=== PATIENT | male | born 1970 | race Caucasian/White ===

== ENCOUNTER 2021-11-13 13:55 | Emergency (ER) | payer MEDICAID ==
[~2021-11-13] VITALS: Ht 177.8 cm; Wt 75.0 kg
[~2021-11-13 13:55] MED LIST: FOLI1TAB27 PO; GABA-532 PO; MULT-25 PO; PANT40TA54 PO; THI100T PO
[2021-11-13 14:14] VITALS: BP 117/78
[2021-11-13] MEDS ORDERED: ONDA4TAB12 PO (14:16)
[2021-11-13] MEDS ORDERED: LORA-269 PO (14:16)
[2021-11-13] MEDS ORDERED: GABA100C PO (14:16)
== END 2021-11-13 14:25 | disposition home or self-care (01) ==
LOC: ER 13:56
DX: F10.129 Alcohol abuse with intoxication, unspecified (principal); F10.10 Alcohol abuse, uncomplicated; R00.0 Tachycardia, unspecified; R47.81 Slurred speech; F41.9 Anxiety disorder, unspecified; Z72.89 Other problems related to lifestyle; Z79.899 Other long term (current) drug therapy; Y90.9 Presence of alcohol in blood, level not specified
CPT/HCPCS: 99283

== ENCOUNTER 2022-10-01 17:23 | Emergency (ER) | payer MEDICAID ==
[~2022-10-01] VITALS: Ht 177.8 cm; Wt 81.8 kg
[~2022-10-01 17:23] MED LIST changes: +GABA100C PO; +LORA-269 PO; +ONDA4TAB12 PO
[2022-10-01] MEDS ORDERED: normal saline 1000ML IV soln IV ONE (17:45)
[2022-10-01 18:30] LABS: BASOPHILS % (AUTO) 0.3 % (0-1); EOSINOPHILS % (AUTO) 0.6 % (0-6); HEMATOCRIT 48.5 % (42.0-52.0); HEMOGLOBIN 16.9 g/dl (14.0-17.9); LYMPHOCYTES # (AUTO) 1.8 X10'3 (1.1-4.8); LYMPHOCYTES % (AUTO) 21.2 % (21-51); MEAN CORPUSCULAR HEMOGLOBIN 33.9 PG (27.0-31.0); MEAN CORPUSCULAR HGB CONC 34.9 g/dL (33.0-36.5); MEAN CORPUSCULAR VOLUME 97.1 FL (78-98); MEAN PLATELET VOLUME 8.8 FL (7.4-10.4); MONOCYTES # (AUTO) 0.7 X10'3 (0-0.9); MONOCYTES % (AUTO) 7.8 % (2-12); NEUTROPHILS # (AUTO) 6.1 X10'3 (1.8-7.7); NEUTROPHILS % (AUTO) 70.1 % (42-75); PLATELET COUNT 147 X10'3 (140-440); RED BLOOD COUNT 4.99 X10'6 (4.70-6.10); RED CELL DISTRIBUTION WIDTH 12.6 % (11.5-14.5); WHITE BLOOD COUNT 8.7 X10'3 (4.5-11.0)
[2022-10-01 18:31] LABS: ALANINE AMINOTRANSFERASE 164 U/L (12-78); ALBUMIN 4.1 G/DL (3.4-5.0); ALBUMIN/GLOBULIN RATIO 1.2 (1.1-1.5); ALKALINE PHOSPHATASE 86 IU/L (46-116); ANION GAP 14 (8-16); ASPARTATE AMINO TRANSFERASE 154 U/L (10-37); BLOOD UREA NITROGEN 23 MG/DL (7-18); BUN/CREATININE RATIO 30.3 (5.4-32.0); CALCIUM 9.3 MG/DL (8.5-10.1); CHLORIDE 94 MMOL/L (99-107); CREATININE 0.76 MG/DL (0.60-1.10); GLUCOSE 124 MG/DL (70-104); MAGNESIUM 2.3 MG/DL (1.5-2.4); POTASSIUM 3.1 MMOL/L (3.5-5.1); SODIUM 129 MMOL/L (135-145); TOTAL CARBON DIOXIDE 21.5 MMOL/L (24-32); TOTAL PROTEIN 7.6 G/DL (6.4-8.2); eGFR > 90 ML/MIN
[2022-10-01] MEDS ORDERED: ONDA4TAB12 PO (20:11)
[2022-10-01] MEDS ORDERED: potassium Cl 20 mEq SR tablet PO ONE (20:45)
[2022-10-01] MEDS ORDERED: ondansetron 4mg rapidly disintigrating tab PO STA (21:00)
[2022-10-01 21:30] VITALS: BP 122/79
== END 2022-10-01 21:33 | disposition home or self-care (01) ==
LOC: ER 17:23
DX: E86.0 Dehydration (principal); Z20.822 Contact with and (suspected) exposure to COVID-19; F41.9 Anxiety disorder, unspecified; Z79.1 Long term (current) use of non-steroidal anti-inflammatories (NSAID); Z79.899 Other long term (current) drug therapy
CPT/HCPCS: 36415; 71045; 80053; 83605; 83735; 84145; 85025; 87040; 87077; 87186; 87502; 87503; 87811; 93005; 96360; 96361; 99285; J7030; 96374

== ENCOUNTER 2023-03-24 23:22 | Inpatient (IN) | payer MEDICAID ==
[~2023-03-24] VITALS: Ht 170.2 cm; Wt 84.8 kg
[2023-03-24] MEDS ORDERED: morphine 4 MG/ML inj SYRINge IV ONE (23:40)
[2023-03-24] MEDS ORDERED: normal saline 1000ml 1,000 ML IV ONE ×2 (23:40)
[2023-03-24] MEDS ORDERED: ondansetron/PF 4mg/2ml inj IV ONE (23:40)
[2023-03-24 23:41] LABS: BASOPHILS % (AUTO) 0.2 % (0-1); EOSINOPHILS % (AUTO) 0 % (0-6); HEMATOCRIT 52.2 % (42.0-52.0); HEMOGLOBIN 17.5 g/dl (14.0-17.9); LYMPHOCYTES # (AUTO) 1.1 X10'3 (1.1-4.8); LYMPHOCYTES % (AUTO) 9.7 % (21-51); MEAN CORPUSCULAR HEMOGLOBIN 32.9 PG (27.0-31.0); MEAN CORPUSCULAR HGB CONC 33.5 g/dL (33.0-36.5); MEAN CORPUSCULAR VOLUME 98.3 FL (78-98); MEAN PLATELET VOLUME 7.8 FL (7.4-10.4); MONOCYTES # (AUTO) 0.6 X10'3 (0-0.9); MONOCYTES % (AUTO) 5.6 % (2-12); NEUTROPHILS # (AUTO) 9.4 X10'3 (1.8-7.7); NEUTROPHILS % (AUTO) 84.5 % (42-75); PLATELET COUNT 208 X10'3 (140-440); RED BLOOD COUNT 5.31 X10'6 (4.70-6.10); WHITE BLOOD COUNT 11.1 X10'3 (4.5-11.0)
[2023-03-24 23:53] LABS: ALANINE AMINOTRANSFERASE 186 U/L (12-78); ALBUMIN 4.2 G/DL (3.4-5.0); ALBUMIN/GLOBULIN RATIO 1.2 (1.1-1.5); ALKALINE PHOSPHATASE 114 IU/L (46-116); ANION GAP 30 (8-16); ASPARTATE AMINO TRANSFERASE 171 U/L (10-37); BILIRUBIN,TOTAL 1.3 MG/DL (0.1-1.0); BLOOD UREA NITROGEN 17 MG/DL (7-18); BUN/CREATININE RATIO 17.5 (10.0-20.0); CALCIUM 8.3 MG/DL (8.5-10.1); CHLORIDE 96 MMOL/L (99-107); CREATININE 0.97 MG/DL (0.60-1.10); GLUCOSE 208 MG/DL (70-104); LIPASE 124 U/L (73-393); POTASSIUM 4.3 MMOL/L (3.5-5.1); SODIUM 138 MMOL/L (135-145); TOTAL PROTEIN 7.7 G/DL (6.4-8.2); eGFR 82 ML/MIN
[2023-03-24 23:58] LABS: TOTAL CARBON DIOXIDE 11.7 MMOL/L (24-32)
[2023-03-25] MEDS ORDERED: NO HOME MEDS (00:07)
[2023-03-25] MEDS ORDERED: dextrose 50%-water 50ml dispensing syringe IV PRN (00:15)
[2023-03-25] MEDS ORDERED: dextrose 5%-normal saline 1,000 ML IV ONE (00:15)
[2023-03-25] MEDS ORDERED: Insulin Reg/NS 100units/100mL 100 ML IV SCH (00:15)
[2023-03-25 00:39] LABS: ABG HCO3 11.6 mmol/L (22.0-26.0); ABG OXYGEN SATURATION 95.4 % (94-97); ABG PCO2 (T) 25.2 mmHg (35.0-48.0); ALLEN'S TEST Modified; FCOHb 1.2 % (0.0-3.9); FMetHb 0.4 % (0.0-1.5); FO2Hb 93.9 % (94-97); PATIENT TEMPERATURE 36.9; TOTAL HEMOGLOBIN 17.4 G/dl (14.0-17.9)
[2023-03-25] MEDS: piperacillin/tazo 3.375gm/50ml 50 ML IV SCH (02:25)
[2023-03-25 02:40] LABS: COLOR,URINE YELLOW (Yellow); GLUCOSE, URINE NEGATIVE (Neg); KETONES,URINE 40 mg/dl (Neg); LEUKOCYTE ESTERASE ,URINE NEGATIVE (Neg); NITRITES, URINE NEGATIVE (Neg); OCCULT BLOOD,URINE TRACE-INTACT (Neg); PROTEIN,URINE 30 mg/dl (Neg); UROBILINOGEN,URINE 0.2 E.U/dL (0.2-1.0)
[2023-03-25 02:45] LABS: UA COLLECTION TYPE VOIDED
[2023-03-25 02:47] LABS: BACTERIA,URINE FEW /HPF (Neg); CLARITY,URINE SLIGHTLY CLOUDY (Clear); SQUAMOUS EPITHELIAL CELL,UR FEW /LPF (FEW); WBC,URINE 0-4 /HPF (0-4)
[2023-03-25] MEDS ORDERED: octreotide 100mcg/1 ml ampule IV ONE (02:55)
[2023-03-25 03:07] LABS: GASTRIC OCCULT BLOOD POSITIVE (Neg)
[2023-03-25] MEDS ORDERED: potassium Cl 40MEQ/1/2NS 520ml 520 ML IV PRN (03:15)
[2023-03-25] MEDS ORDERED: magnesium 2GM in 50ml NS 50 ML IV PRN (03:15)
[2023-03-25] MEDS ORDERED: magnesium 4gm in 100ml NS 100 ML IV PRN (03:15)
[2023-03-25] MEDS ORDERED: thiamine 100mg/ml 2ml inj. IV ONE (03:20)
[2023-03-25] MEDS: ondansetron/PF 4mg/2ml inj IV PRN ×2 (04:14→15:09)
[2023-03-25] MEDS: LORazepam 2 mg/ml vial IV PRN ×2 (05:08→19:39)
[2023-03-25] MEDS: pantoprazole 40MG/NS 100ML BAG 100 ML IV SCH ×4 (05:08→19:59)
[2023-03-25 05:39] LABS: ALANINE AMINOTRANSFERASE 161 U/L (12-78); ALBUMIN 3.6 G/DL (3.4-5.0); ALBUMIN/GLOBULIN RATIO 1.1 (1.1-1.5); ALKALINE PHOSPHATASE 90 IU/L (46-116); ANION GAP 20 (8-16); ASPARTATE AMINO TRANSFERASE 136 U/L (10-37); BILIRUBIN,TOTAL 1.5 MG/DL (0.1-1.0); BLOOD UREA NITROGEN 12 MG/DL (7-18); BUN/CREATININE RATIO 13.5 (10.0-20.0); CALCIUM 7.5 MG/DL (8.5-10.1); CHLORIDE 102 MMOL/L (99-107); CREATININE 0.89 MG/DL (0.60-1.10); GLUCOSE 240 MG/DL (70-104); MAGNESIUM 1.9 MG/DL (1.5-2.4); POTASSIUM 4.1 MMOL/L (3.5-5.1); SODIUM 139 MMOL/L (135-145); TOTAL PROTEIN 6.9 G/DL (6.4-8.2); eGFR 90 ML/MIN
--- NOTE | 2023-03-25 05:46 | NUR ---
recieved report from Jose in ER, pt arrived to the floor at 0540 via ER transport personnel in a wheelchair.
[2023-03-25 05:57] VITALS: BP 129/84
--- NOTE | 2023-03-25 06:00 | NUR ---
Patient in room PCU 3015. I have received report from Summer and had the opportunity to ask questions and assume patient care.
--- NOTE | 2023-03-25 06:47 | NUR ---
Problems reprioritized. Patient report given, questions answered & plan of care reviewed with Naveen RN and Stiven RN. Pt stable at shift change.
[2023-03-25] MEDS: dextrose 5%-1/2 normal saline 1,000 ML IV SCH ×2 (06:52→08:30)
--- NOTE | 2023-03-25 06:55 | NUR ---
Patient in room PCU 3015. I have received report from Summer VELA and had the opportunity to ask questions and assume patient care.
[2023-03-25] MEDS: K and/or MAG REPLACEMENT MC SCH ×2 (07:06→20:00)
[2023-03-25 07:13] VITALS: BP 135/97
[2023-03-25 08:50] LABS: HEMOGLOBIN A1C 5.3 % (4.5-6.2)
[2023-03-25] MEDS ORDERED: insulin Lispro (HumaLOG) vial - multi-dose SQ SCH (09:00)
[2023-03-25] MEDS: normal saline 1000ml 1,000 ML IV SCH ×2 (10:15→17:35)
[2023-03-25 11:00] VITALS: BP 164/96
--- NOTE | 2023-03-25 11:09 | NUR ---
Noted to be sticking 2 fingers into his throat, has repeatedly stated "ativan helps with my nausea"
--- NOTE | 2023-03-25 14:36 | NUR ---
States he is "too tired to drink clear liquids right now" and it makes him feel "strange"
[2023-03-25 15:37] VITALS: BP 125/74
[2023-03-25 18:00] VITALS: BP 150/92
--- NOTE | 2023-03-25 18:10 | NUR ---
Problems reprioritized. Patient report given, questions answered & plan of care reviewed with Summer. Addendum: 03/25/23 at 1816 by Stiven Kong RN Amended: Links added.
[2023-03-25 22:00] VITALS: BP 118/83
[2023-03-26] MEDS: normal saline 1000ml 1,000 ML IV SCH ×3 (01:27→22:01)
[2023-03-26] MEDS: piperacillin/tazo 3.375gm/50ml 50 ML IV SCH (01:59)
[2023-03-26 02:00] VITALS: BP 138/98
[2023-03-26] MEDS: pantoprazole 40MG/NS 100ML BAG 100 ML IV SCH ×2 (02:00→05:42)
[2023-03-26] MEDS ORDERED: HYDROcodone/acetaminophen 5mg/325mg tablet PO ONE (03:45)
--- NOTE | 2023-03-26 06:44 | NUR ---
Problems reprioritized. Patient report given, questions answered & plan of care reviewed with DANE Bustamante. Pt stable at shift change.
--- NOTE | 2023-03-26 06:59 | NUR ---
Patient in room PCU 3015. I have received report from Summer VELA and had the opportunity to ask questions and assume patient care.
[2023-03-26 07:00] VITALS: BP 137/88
[2023-03-26 07:14] LABS: BASOPHILS % (AUTO) 0.5 % (0-1); EOSINOPHILS % (AUTO) 0.2 % (0-6); HEMATOCRIT 43.3 % (42.0-52.0); HEMOGLOBIN 14.8 g/dl (14.0-17.9); LYMPHOCYTES # (AUTO) 1.6 X10'3 (1.1-4.8); LYMPHOCYTES % (AUTO) 21.5 % (21-51); MEAN CORPUSCULAR HEMOGLOBIN 33.6 PG (27.0-31.0); MEAN CORPUSCULAR HGB CONC 34.3 g/dL (33.0-36.5); MEAN PLATELET VOLUME 8.4 FL (7.4-10.4); MONOCYTES # (AUTO) 0.7 X10'3 (0-0.9); MONOCYTES % (AUTO) 9.7 % (2-12); NEUTROPHILS # (AUTO) 5.1 X10'3 (1.8-7.7); NEUTROPHILS % (AUTO) 68.1 % (42-75); PLATELET COUNT 118 X10'3 (140-440); RED BLOOD COUNT 4.42 X10'6 (4.70-6.10); RED CELL DISTRIBUTION WIDTH 13.3 % (11.5-14.5); WHITE BLOOD COUNT 7.4 X10'3 (4.5-11.0)
[2023-03-26 07:27] LABS: ALANINE AMINOTRANSFERASE 132 U/L (12-78); ALBUMIN 3.5 G/DL (3.4-5.0); ALBUMIN/GLOBULIN RATIO 1.2 (1.1-1.5); ALKALINE PHOSPHATASE 81 IU/L (46-116); ANION GAP 13 (8-16); ASPARTATE AMINO TRANSFERASE 113 U/L (10-37); BLOOD UREA NITROGEN 8 MG/DL (7-18); BUN/CREATININE RATIO 12.1 (10.0-20.0); CALCIUM 8.5 MG/DL (8.5-10.1); CHLORIDE 101 MMOL/L (99-107); CREATININE 0.66 MG/DL (0.60-1.10); GLUCOSE 111 MG/DL (70-104); MAGNESIUM 1.8 MG/DL (1.5-2.4); POTASSIUM 3.2 MMOL/L (3.5-5.1); SODIUM 138 MMOL/L (135-145); TOTAL PROTEIN 6.4 G/DL (6.4-8.2); eGFR > 90 ML/MIN
[2023-03-26] MEDS: K and/or MAG REPLACEMENT MC SCH ×2 (08:00→20:40)
[2023-03-26] MEDS ORDERED: sincalide inj 1.7 MCG in normal saline 100ml IV soln 100 ML IV ONE (08:50)
--- NOTE | 2023-03-26 09:01 | NUR ---
Dr Card wanted to DC the Protonix gtt and swap to PO. Orders changed.
[2023-03-26 11:00] VITALS: BP 141/99
--- NOTE | 2023-03-26 13:34 | NUR ---
PAGER ID: [phone] MESSAGE: Bao 3015B, Pt's nucmed scan and results are completed. Low EF for gallbladder. Robby [phone]
[2023-03-26] MEDS: LORazepam 2 mg/ml vial IV PRN ×2 (14:12→20:28)
[2023-03-26 15:00] VITALS: BP 125/78
--- NOTE | 2023-03-26 16:55 | NUR ---
PAGER ID: [phone] MESSAGE: Bao 3015B, Pt doesn't have any pain meds in their eMAR and they are having pain. Did you want any pain meds started? Robby [phone]
[2023-03-26] MEDS ORDERED: HYDROcodone/acetaminophen 5mg/325mg tablet PO PRN (17:20)
[2023-03-26] MEDS ORDERED: HYDROmorphone inj. 0.5 MG/0.5 ML DISP.SYRIN IV PRN (17:20)
[2023-03-26] MEDS ORDERED: acetaminophen 325mg tablet PO PRN (17:20)
[2023-03-26 18:00] VITALS: BP 137/96
--- NOTE | 2023-03-26 18:37 | NUR ---
Problems reprioritized. Patient report given, questions answered & plan of care reviewed with Radha VELA.
--- NOTE | 2023-03-26 18:49 | NUR ---
Patient in room PCU 3015. I have received report from DANE Bustamante and had the opportunity to ask questions and assume patient care.
--- NOTE | 2023-03-26 20:00 | NUR ---
DRILLING INSPECTOR documentation: I have reviewed and agree with all interventions, assessments performed and documented by Radha Mott DRILLING INSPECTOR .
[2023-03-26 22:00] VITALS: BP 128/80
[2023-03-27] MEDS: piperacillin/tazo 3.375gm/50ml 50 ML IV SCH (01:46)
[2023-03-27] MEDS: normal saline 1000ml 1,000 ML IV SCH ×2 (01:51→17:45)
[2023-03-27 02:00] VITALS: BP 120/92
[2023-03-27 06:19] LABS: BASOPHILS % (AUTO) 0.6 % (0-1); EOSINOPHILS # (AUTO) 0.1 X10'3 (0-0.9); EOSINOPHILS % (AUTO) 1.4 % (0-6); HEMATOCRIT 43.8 % (42.0-52.0); HEMOGLOBIN 15.1 g/dl (14.0-17.9); LYMPHOCYTES # (AUTO) 1.4 X10'3 (1.1-4.8); LYMPHOCYTES % (AUTO) 26.3 % (21-51); MEAN CORPUSCULAR HEMOGLOBIN 33.6 PG (27.0-31.0); MEAN CORPUSCULAR HGB CONC 34.4 g/dL (33.0-36.5); MEAN CORPUSCULAR VOLUME 97.5 FL (78-98); MEAN PLATELET VOLUME 8.4 FL (7.4-10.4); MONOCYTES # (AUTO) 0.6 X10'3 (0-0.9); NEUTROPHILS # (AUTO) 3.1 X10'3 (1.8-7.7); NEUTROPHILS % (AUTO) 59.7 % (42-75); PLATELET COUNT 101 X10'3 (140-440); RED BLOOD COUNT 4.49 X10'6 (4.70-6.10); RED CELL DISTRIBUTION WIDTH 12.9 % (11.5-14.5); WHITE BLOOD COUNT 5.2 X10'3 (4.5-11.0)
[2023-03-27 06:37] LABS: ALANINE AMINOTRANSFERASE 129 U/L (12-78); ALBUMIN 3.3 G/DL (3.4-5.0); ALBUMIN/GLOBULIN RATIO 1.2 (1.1-1.5); ALKALINE PHOSPHATASE 76 IU/L (46-116); ANION GAP 12 (8-16); ASPARTATE AMINO TRANSFERASE 112 U/L (10-37); BILIRUBIN,TOTAL 1.7 MG/DL (0.1-1.0); BLOOD UREA NITROGEN 7 MG/DL (7-18); BUN/CREATININE RATIO 10.3 (10.0-20.0); CALCIUM 8.6 MG/DL (8.5-10.1); CHLORIDE 99 MMOL/L (99-107); CREATININE 0.68 MG/DL (0.60-1.10); GLUCOSE 117 MG/DL (70-104); MAGNESIUM 1.7 MG/DL (1.5-2.4); SODIUM 135 MMOL/L (135-145); TOTAL CARBON DIOXIDE 24.4 MMOL/L (24-32); TOTAL PROTEIN 6.1 G/DL (6.4-8.2); eGFR > 90 ML/MIN
--- NOTE | 2023-03-27 06:37 | NUR ---
Problems reprioritized. Patient report given, questions answered & plan of care reviewed with DREW Madrid.
[2023-03-27 06:52] VITALS: BP 135/94
--- NOTE | 2023-03-27 07:05 | NUR ---
Patient in room PCU 3015. I have received report from Radha RUSSELL and had the opportunity to ask questions and assume patient care.
--- NOTE | 2023-03-27 07:18 | NUR ---
promotional table spacer promotional table spacer Page Sent promotional table spacer PAGER ID: [phone] Sent to Dr Card MESSAGE: [id number] Kvng Gore Potassium is 3.0 [facility] ACCOUNT MANAGER B2B [phone]
[2023-03-27] MEDS ORDERED: potassium Cl 40MEQ/1/2NS 520ml 520 ML IV ONE ×2 (07:45→11:45)
[2023-03-27] MEDS: K and/or MAG REPLACEMENT MC SCH ×2 (08:00→20:00)
[2023-03-27] MEDS: LORazepam 2 mg/ml vial IV PRN ×2 (08:19→11:40)
[2023-03-27] MEDS: pantoprazole 40mg Tablet.DR PO SCH (08:46)
[2023-03-27 11:00] VITALS: BP 143/98
[2023-03-27] MEDS ORDERED: BUPIVAcaine/PF 2.5 mg/ml (0.25%) 30ml vial ONE (12:30)
[2023-03-27] MEDS ORDERED: BUPIVAcaine/PF 2.5mg/ml (0.25%) 10ml vial ONE (12:30)
[2023-03-27 15:00] VITALS: BP 132/92
[2023-03-27] MEDS: LORazepam 1 MG tablet PO PRN ×2 (18:31→22:44)
[2023-03-27 19:00] VITALS: BP 114/81
--- NOTE | 2023-03-27 20:30 | NUR ---
Pt had morning K+ level 3.0, LN day gave to LN noc report that 2 IV doses K+ replacement given. NOC LN checked emar and noted last dose of K+ given 30 hrs ago, unsure of amount of K+ given during day shift, checked with charge nurse and obtained a new K+ level at 2100, 4.0. No replacements need att.
--- NOTE | 2023-03-27 20:30 | NUR ---
AGILE BUSINESS ANALYST documentation: I have reviewed and agree with all interventions, assessments performed and documented by Megan Duncan LVN .
[2023-03-27 23:05] VITALS: BP 105/85
[2023-03-28] VITALS (7 sets, daily range): BP systolic 120–156; BP diastolic 82–106
[2023-03-28] MEDS: normal saline 1000ml 1,000 ML IV SCH ×3 (01:45→11:01)
[2023-03-28] MEDS: LORazepam 1 MG tablet PO PRN ×6 (01:56→13:41)
[2023-03-28] MEDS: piperacillin/tazo 3.375gm/50ml 50 ML IV SCH (02:22)
[2023-03-28 06:43] LABS: BASOPHILS % (AUTO) 0.5 % (0-1); EOSINOPHILS # (AUTO) 0.2 X10'3 (0-0.9); EOSINOPHILS % (AUTO) 2.5 % (0-6); HEMATOCRIT 47.2 % (42.0-52.0); HEMOGLOBIN 16.3 g/dl (14.0-17.9); LYMPHOCYTES # (AUTO) 2.2 X10'3 (1.1-4.8); LYMPHOCYTES % (AUTO) 36.4 % (21-51); MEAN CORPUSCULAR HEMOGLOBIN 34.2 PG (27.0-31.0); MEAN CORPUSCULAR HGB CONC 34.5 g/dL (33.0-36.5); MEAN CORPUSCULAR VOLUME 98.9 FL (78-98); MEAN PLATELET VOLUME 8.6 FL (7.4-10.4); MONOCYTES # (AUTO) 0.8 X10'3 (0-0.9); MONOCYTES % (AUTO) 12.5 % (2-12); NEUTROPHILS % (AUTO) 48.1 % (42-75); PLATELET COUNT 131 X10'3 (140-440); RED BLOOD COUNT 4.77 X10'6 (4.70-6.10); RED CELL DISTRIBUTION WIDTH 12.9 % (11.5-14.5); WHITE BLOOD COUNT 6.2 X10'3 (4.5-11.0)
[2023-03-28 06:48] LABS: ALBUMIN 3.6 G/DL (3.4-5.0); ALBUMIN/GLOBULIN RATIO 1.1 (1.1-1.5); ANION GAP 9 (8-16); ASPARTATE AMINO TRANSFERASE 123 U/L (10-37); BILIRUBIN,TOTAL 1.5 MG/DL (0.1-1.0); BLOOD UREA NITROGEN 7 MG/DL (7-18); BUN/CREATININE RATIO 8.9 (10.0-20.0); CALCIUM 8.9 MG/DL (8.5-10.1); CHLORIDE 100 MMOL/L (99-107); CREATININE 0.79 MG/DL (0.60-1.10); GLUCOSE 106 MG/DL (70-104); MAGNESIUM 1.9 MG/DL (1.5-2.4); POTASSIUM 4.1 MMOL/L (3.5-5.1); SODIUM 136 MMOL/L (135-145); TOTAL CARBON DIOXIDE 27.2 MMOL/L (24-32); TOTAL PROTEIN 6.8 G/DL (6.4-8.2); eGFR > 90 ML/MIN
[2023-03-28 06:49] LABS: ALANINE AMINOTRANSFERASE 161 U/L (12-78); ALKALINE PHOSPHATASE 82 IU/L (46-116)
--- NOTE | 2023-03-28 06:56 | NUR ---
Patient in room PCU 3015. I have received report from Meagn RUSSELL and had the opportunity to ask questions and assume patient care.
[2023-03-28] MEDS: pantoprazole 40mg Tablet.DR PO SCH (07:41)
[2023-03-28] MEDS: K and/or MAG REPLACEMENT MC SCH (08:00)
[2023-03-28 08:20] LABS: TOTAL CELLS COUNTED 100
[2023-03-28 08:21] LABS: PLATELET ESTIMATE DECREASED
[2023-03-28] MEDS ORDERED: MIDAZolam 1 MG/ML 5ML VIAL ONE (11:17)
[2023-03-28] MEDS ORDERED: fentaNYL/PF 50MCG/1 ML 2ML syringe ONE (11:17)
[2023-03-28] MEDS ORDERED: LIDOcaine Viscous 15ml cup ONE (11:17)
--- NOTE | 2023-03-28 16:33 | NUR ---
Sent to Dr Dyer - [id number] Kvng Gore Pt came back from EGD. Can he eat? [facility] HYDROSTATIC TESTER [phone]
--- NOTE | 2023-03-28 16:49 | NUR ---
Sent to Dr Dyer - MESSAGE: [id number] Kvng Gore is dressed and ready to leave. He has a ride at 1700. Would you like to discharge? He states he is leaving either way. Please advise. [facility] RUSSELL [phone]
--- NOTE | 2023-03-28 16:50 | NUR ---
Dr Dyer called and stated to let the patient leave AMA. D/[place] patients IV. VS stable during my shift. Patient A&Ox4, stable and makes own decisions. Patient signed the AMA form and is aware of any risk involved. He stated he will follow up with Doctor on regarding test results and discuss further treatment on an outpatient basis. He gathered all belongings and left in a private vehicle.
[2023-03-29] MEDS ORDERED: LORazepam 1 MG tablet PO PRN (03:20)
[2023-03-29] MEDS ORDERED: LORazepam 2 mg/ml vial IV PRN (03:20)
[2023-03-29] MEDS ORDERED: thiamine 100mg tablet PO SCH (08:00)
== END 2023-03-28 16:57 | disposition left against medical advice (07) | DRG 720 ==
LOC: ER 23:23 → ED HOLD 03-25 03:18 → PCU 3S 03-25 05:33
PROVIDERS: ADMIT Internal Medicine; ATTEND Family Medicine
PROC: CF1C1ZZ Planar Nuclear Medicine Imaging of Hepatobiliary System, All using Technetium 99m (Tc-99m) (ICD-10-PCS; principal; 2023-03-26)
PROC: 0DB68ZX Excision of Stomach, Via Natural or Artificial Opening Endoscopic, Diagnostic (ICD-10-PCS; 2023-03-28)
DX: A41.9 Sepsis, unspecified organism (principal); E87.29 Other acidosis; K92.0 Hematemesis; K70.10 Alcoholic hepatitis without ascites; E86.0 Dehydration; F10.920 Alcohol use, unspecified with intoxication, uncomplicated; Z53.29 Procedure and treatment not carried out because of patient's decision for other reasons; E87.6 Hypokalemia; F10.939 Alcohol use, unspecified with withdrawal, unspecified; K29.20 Alcoholic gastritis without bleeding; K20.90 Esophagitis, unspecified without bleeding; K21.00 Gastro-esophageal reflux disease with esophagitis, without bleeding; R74.01 Elevation of levels of liver transaminase levels; K82.8 Other specified diseases of gallbladder; K90.49 Malabsorption due to intolerance, not elsewhere classified; R65.20 Severe sepsis without septic shock; Y90.8 Blood alcohol level of 240 mg/100 ml or more; F17.200 Nicotine dependence, unspecified, uncomplicated; F41.9 Anxiety disorder, unspecified
CPT/HCPCS: 36415; 36600; 43239; 71045; 74176; 76700; 78227; 80053; 80320; 81001; 82271; 82803; 82948; 83036; 83605; 83690; 83735; 84132; 85007; 85018; 85025; 87040; 87081; 93005; 99152; 99285; A4620; A9537; C9113; G0378; J1815; J2060; J2250; J2270; J2354; J2405; J2543; J2805; J3010; J3411; J3480; J3490; J7030; J7042

== ENCOUNTER 2023-03-30 06:58 | Emergency (ER) | payer MEDICAID ==
[~2023-03-30] VITALS: Ht 175.3 cm; Wt 85.0 kg
[~2023-03-30 06:58] MED LIST changes: -FOLI1TAB27 PO; -GABA-532 PO; -GABA100C PO; -LORA-269 PO; -MULT-25 PO; +NO HOME MEDS; -ONDA4TAB12 PO; -PANT40TA54 PO; -THI100T PO
[2023-03-30 07:03] VITALS: BP 126/83
[2023-03-30] MEDS ORDERED: DICY10CA88 PO (07:32)
[2023-03-30] MEDS ORDERED: dicyclomine 10 MG capsule PO ONE (07:35)
== END 2023-03-30 07:52 | disposition home or self-care (01) ==
LOC: ER 06:59
DX: R10.32 Left lower quadrant pain (principal); F41.9 Anxiety disorder, unspecified; Z79.899 Other long term (current) drug therapy
CPT/HCPCS: 99283